=== PATIENT | male | born 1945 | race Caucasian/White ===

== ENCOUNTER 2016-05-01 10:53 | Emergency (ER) | payer MEDICARE, OTHER ==
[2016-05-01] MEDS ORDERED: ALBUTEROL SULFATE/IPRATROPIUM 3 ML NEBU IH ONE ×2 (11:46→12:49)
--- NOTE | 2016-05-01 11:59 | ERNOTE ---
Date of Service: 05/01/16 Time Seen by Provider: 05/01/16 11:40 Stated Complaint: SICK Presenting Symptoms:: cough, runny nose, other - dyspnea Source: patient, RN notes reviewed, past records Exam Limitations: no limitations Immunizations: IMMUNIZATION HX Immunizations Up to Date Yes History of Influenza Vaccine Yes Hx Pneumococcal Vaccination Yes Allergies/Adverse Reactions: Allergies acetaminophen [From Percocet] Adverse Reaction (Verified 05/01/16 11:18) Itching oxycodone HCl [From Percocet] Adverse Reaction (Verified 05/01/16 11:18) Itching Home Medications: HOME MEDICATIONS Ascorbic Acid [Vitamin C] 2,000 mg PO DAILY 03/25/13 [Last Taken 08/20/14] Aspirin 325 mg PO DAILY 03/25/13 [Last Taken 07/22/14] Cyanocobalamin (Vitamin B-12) [Vitamin B-12] 500 mcg PO DAILY 03/25/13 [Last Taken 08/20/14] Garlic 1,000 mg PO DAILY 03/25/13 [Last Taken 08/20/14] Hydrochlorothiazide 12.5 mg PO DAILY 03/25/13 [Last Taken 08/21/14 04:30] Lisinopril [Zestril] 2.5 mg PO DAILY 03/25/13 [Last Taken 08/21/14 04:30] Loratadine [Claritin] 10 mg PO DAILY 03/25/13 [Last Taken 08/21/14 04:30] Metoprolol Tartrate [Lopressor] 50 mg PO BIDWM 03/25/13 [Last Taken 10/02/14] Multivitamins [Multivitamin Marva] 1 cap PO DAILY 03/25/13 [Last Taken 08/20/14 ] Simvastatin 80 mg PO DAILY 03/25/13 [Last Taken 08/20/14] Chromium/Herbal Complex No.238 [Green Tea Caplet] 1 each PO DAILY 07/29/14 [ Last Taken 08/20/14] [place]-3 Fatty Acids/Fish Oil [Fish Oil 1,200 mg Softgel] 1 each PO BID 07/29/14 [Last Taken 08/20/14] Promethazine HCl [Phenergan] 25 mg PO QID PRN #30 tab 08/24/14 [Last Taken Unknown] Sennosides/Docusate Sodium [Senokot-S] 2 tab PO HS #60 tablet 08/24/14 [Last Taken Unknown] Doxazosin Mesylate [Cardura] 1 mg PO HS 09/30/14 [Last Taken Unknown] Gabapentin 300 mg PO TID #90 capsule 10/08/14 [Last Taken Unknown] oxyCODONE HCL/ACETAMINOPHEN [Percocet 5 MG/325 MG] 1 - 2 tab PO Q4H PRN #30 tab 10/08/14 [Last Taken Unknown] Cephalexin Monohydrate [Keflex] 1,000 mg PO BID #40 cap 11/14/14 [Last Taken Unknown] Sulfamethoxazole/Trimethoprim [Bactrim Ds] 1 tab PO BID #20 tablet 03/26/15 [ Last Taken Unknown] Albuterol Sulfate [Proair Hfa] 2 puff IH QID PRN #1 inhaler 05/01/16 [Last Taken Unknown] Azithromycin [Zithromax] 250 mg PO NOW #6 tablet 05/01/16 [Last Taken Unknown] Furosemide [Lasix] 40 mg PO DAILY #7 tablet 05/01/16 [Last Taken Unknown] Potassium Chloride 10 meq PO DAILY #7 tab.er.prt 05/01/16 [Last Taken Unknown] - History of Present Ilness Narrative: 71 year old male who presents to er with c/o uri symptoms, cough and dyspnea. pt's recently ill with influenza. pt states that he feels "out of it". c/ o cp yesterday that is worse with cough but no cp today. history avr. Timing: constant, getting worse Severity: moderate Frequency/Possible Cause: Reports: illness exposure Modifying Factors - Improves: Reports: rest Modifying Factors - Worsens: Reports: activity, coughing Associated Symptoms: Reports: chest pain/soreness, cough, shortness of breath, nasal congestion, nasal drainage, other - body aches. Denies: wheezing, sore throat, fever/chills Review of Systems - Review of Systems Constitutional: Present: weakness, malaise, other - body aches ENT: Present: nose congestion, nasal drainage Respiratory: Present: shortness of breath, cough Cardiology: Present: chest pain. Absent: syncope Gastrointestinal/Abdominal: Present: no symptoms reported Genitourinary: Present: no symptoms reported Musculoskeletal: Present: no symptoms reported Skin: Present: no symptoms reported Neurological: Present: weakness Endocrine: Present: no symptoms reported Hematologic/Lymphatic: Present: no symptoms reported Psych: Present: no symptoms reported All Other Systems: All systems neg except as marked - Patient's Past Medical History Patient History - Medical: Arthritis, Cataracts, Chronic Pain Patient History - Cardiac/Respiratory: Hypertension Patient History - Cancer: Lymphoma Patient History - Surgical Procedures: Coronary Bypass Surgery, Cardiac stent, Other - AVR - Family History Mother Family History - Medical: Father Family History - Medical: Family History - Cardiac/Respiratory: Coronary Heart Disease - Social History Living Situations: home Abuse History: No History of abuse Psych History: No pertinent hx Does anyone smoke in the home?: No Smoking Status: Former smoker Alcohol Use: none Drug Use: none - Immunizations Immunizations Up to Date: Yes Hx Pneumococcal Vaccination: Yes History of Influenza Vaccine: Yes Physical Exam - Physical Exam General Appearance: Present: wd/wn, alert, no apparent distress Eye Exam: Normal inspection: bilateral Ears, Nose, Throat: Present: hearing grossly normal, nasal congestion Neck: Present: normal inspection, supple, full range of motion, lymphadenopathy (R), lymphadenopathy (L) Respiratory: Present: no respiratory distress, no accessory muscle use, chest tenderness, decreased breath sounds Cardiovascular/Chest: Present: regular rate, rhythm, normal peripheral pulses, systolic murmur - 2/4 Gastrointestinal/Abdominal: Present: nontender, nondistended, soft Rectal Exam: Present: deferred Male Genitals Exam: Present: deferred Back Exam: Present: normal inspection, normal range of motion, no CVA tenderness Extremity Exam: Present: normal inspection, non-tender, no edema, normal range of motion Neurological Exam: Present: alert, oriented, normal mood/affect, no motor/ sensory deficits Skin Exam: Present: normal color, warm/dry ED Progress - Date and Time Seen: Date and Time: 05/01/16 13:14 improved after breathing treatment - Results and Orders Results and Orders: Laboratory Tests 05/01/16 11:54 WBC 6.1 RBC 4.17 L Hgb 11.5 L Hct 36.3 L MCV 87.1 MCH 27.6 MCHC 31.7 L RDW 14.7 H Plt Count 119 L MPV 9.4 Immature Gran % (Auto) 0.50 H Immature Gran # (Auto) 0.03 Neutrophils % 81.1 H Lymphocytes % 5.9 L Monocytes % 8.7 Eosinophils % 3.6 H Basophils % 0.2 Nucleated RBC % 0.0 Neutrophils # 5.0 Lymphocytes # 0.4 L Monocytes # 0.5 Eosinophils # 0.2 Absolute Basophils 0.0 Laboratory Tests 05/01/16 11:54 Sodium 140 Plasma Sodium 141 Potassium 3.9 Chloride 104 Carbon Dioxide 31.0 Anion Gap 8.9 BUN 22 Creatinine 1.34 Est GFR (Non-Af Amer) 56 L BUN/Creatinine Ratio 16.4 Random Glucose 157 H Calcium 8.7 Calcium Adj for Albumin 9.0 Total Bilirubin 0.6 AST 26 ALT 28 Alkaline Phosphatase 66 Troponin I Less than 0.017 Total Protein 6.4 Albumin 3.2 L Laboratory Tests 05/01/16 12:26 Influenza Type A Ag Negative Influenza Type B Ag Negative - Vital Signs Vital Signs: Vital Signs 05/01/16 11:16 Temperature 35.6 C L Pulse Rate 70 Respiratory 14 Rate Blood Pressure 125/64 O2 Sat by Pulse 98 Oximetry - EKG EKG: other - AV Paced EKG read: Interp. by me - X-Ray X-Ray #1 X-Ray: chest Interpretation: Reviewed by me - interp by dr cueva. X-ray Comments: chest xray shows trace right pleural effusion. Exam Date: 05/01/2016 12:03 Ordering Physician: Merced Regalado History: Shortness of breath. Cough yesterday. Technique: PA and lateral views of the chest are evaluated without comparison. Findings: Median sternotomy wires and post-CABG changes. Cardiac pacer. Diffuse hyperinflation of the lungs bilaterally with flattening of the hemidiaphragm. Scattered calcified granulomas The lungs are clear bilaterally. Blunting of the right costophrenic angle consistent with a small pleural effusion. No left pleural effusion. There is no focal consolidation or pneumothorax. Cardiac silhouette mildly prominent. The pulmonary vasculature are normal. The osseous structures demonstrate degenerative changes of the spine and shoulders. IMPRESSION: 1. SMALL RIGHT PLEURAL EFFUSION. 2. OTHERWISE NO ACUTE CARDIOPULMONARY ABNORMALITY IDENTIFIED. Electronically signed by Gordon Troy D.O.. - Progress/Reassessment Chief Complaint: Upper Respiratory Symptoms Progress:: Improved Departure - Departure Clinical Impression: Bronchitis, Pleural effusion URI (upper respiratory infection) Qualifiers: URI type: unspecified URI Qualified Code(s): J06.9 - Acute upper respiratory infection, unspecified Disposition: Home self-care Condition: Good Instructions: Pleural Effusion, Acute Bronchitis, [id number] Additional Instructions: call dr mike's office on tuesday for a follow up appointment next week. use inhaler as needed for cough or dyspnea. take lasix in the am as directed. return to er if worse. Referrals: Deangelo Mike MD [Primary Care Provider] - Prescriptions: Albuterol Sulfate [Proair Hfa] 2 puff IH QID PRN #1 inhaler PRN Reason: Shortness Of Breath Azithromycin [Zithromax] 250 mg PO NOW #6 tablet Furosemide [Lasix] 40 mg PO DAILY #7 tablet Potassium Chloride 10 meq PO DAILY #7 tab.er.prt
[2016-05-01 12:05] LABS: Hematocrit 36.3 % (42.0-52.0); Hemoglobin 11.5 gm/dL (13.5-18.0); Mean Cell Volume 87.1 fl (78-100); Mean Corpuscular Hemoglobin 27.6 pg (27-31); Mean Corpuscular Hgb Conc 31.7 g/dl (32-36); Mean Platelet Volume 9.4 fl (6.0-9.5); Neutrophil % 81.1 % (42-75.0); Platelet Count 119 K/mm3 (150-450); Red Blood Count 4.17 M/mm3 (4.7-6.0); Red Cell Distribution Width 14.7 % (11.5-14.0); White Blood Count 6.1 K/mm3 (4.0-10.5)
[2016-05-01 12:24] LABS: ALT 28 U/L (19-67); AST 26 U/L (0-48); Albumin * 3.2 gm/dl (3.4-5.0); Alkaline Phosphatase * 66 U/L (50-170); Anion Gap 8.9 mmol/L (6.8-13.8); BNP * 1481 pg/mL (5-350); BUN/Creatinine Ratio 16.4 (9.0-21.6); Bilirubin, Total 0.6 mg/dL (0.0-1.1); Blood Urea Nitrogen 22 mg/dL (6-23); Calcium * 8.7 mg/dL (7.9-10.9); Chloride 104 mmol/L (97-106); Glucose * 157 mg/dL (70-110); Potassium 3.9 mmol/L (3.4-4.6); Sodium 140 mmol/L (132-142); Total Protein 6.4 gm/dL (6.2-8.2)
[2016-05-01 12:25] LABS: Troponin I Less than 0.017 ng/ml (0.00-0.10)
[2016-05-01 14:08] VITALS: BP 118/70
== END 2016-05-01 13:24 | disposition home or self-care (01) ==
LOC: ER 10:53
DX: J40 Bronchitis, not specified as acute or chronic (principal); J90 Pleural effusion, not elsewhere classified; J06.9 Acute upper respiratory infection, unspecified; Z85.72 Personal history of non-Hodgkin lymphomas; Z87.891 Personal history of nicotine dependence

== ENCOUNTER 2017-05-05 09:47 | Emergency (ER) | payer MEDICARE, OTHER ==
[2017-05-05 10:25] LABS: Urine Bilirubin Negative (NEGATIVE); Urine Blood Negative /ul (NEGATIVE); Urine Ketone Negative (NEGATIVE); Urine Nitrite Negative (NEGATIVE); Urine Protein Negative (NEGATIVE); Urine Urobilinogen Normal (NORMAL); Urine pH 7.5 pH (5.0-7.0)
[2017-05-05 10:41] LABS: Urine Appearance Clear; Urine Bacteria None Seen; Urine Color Yellow; Urine RBC None Seen /hpf (0-5); Urine WBC None Seen /hpf (0-5)
[2017-05-05 10:52] LABS: Hematocrit 32.4 % (42.0-52.0); Hemoglobin 11.1 gm/dL (13.5-18.0); Mean Cell Volume 84.8 fl (78-100); Mean Corpuscular Hemoglobin 29.1 pg (27-31); Mean Corpuscular Hgb Conc 34.3 g/dl (32-36); Mean Platelet Volume 10.2 fl (6.0-9.5); Neutrophil # 2.2 K/mm3 (1.3-6.0); Neutrophil % 65.3 % (42-75.0); Platelet Count 116 K/mm3 (150-450); Red Blood Count 3.82 M/mm3 (4.7-6.0); Red Cell Distribution Width 14.7 % (11.5-14.0); White Blood Count 3.4 K/mm3 (4.0-10.5)
--- NOTE | 2017-05-05 11:09 | ERNOTE ---
Syncope ER HPI Date of Service: 05/05/17 Stated Complaint: SYNCOPAL EPISODE Time Seen by Provider: 05/05/17 10:45 Source: patient, family, RN notes reviewed, past records Exam Limitations: no limitations Immunizations: IMMUNIZATION HX Immunizations Up to Date Yes History of Influenza Vaccine Yes Hx Pneumococcal Vaccination Yes Allergies/Adverse Reactions: Allergies oxycodone HCl [From Percocet] Adverse Reaction (Verified 05/05/17 10:00) Itching Home Medications: HOME MEDICATIONS Ascorbic Acid [Vitamin C] 2,000 mg PO DAILY 03/25/13 [Last Taken 08/20/14] Aspirin 81 mg PO DAILY 03/25/13 [Last Taken 07/22/14] Cyanocobalamin (Vitamin B-12) [Vitamin B-12] 500 mcg PO DAILY 03/25/13 [Last Taken 08/20/14] Hydrochlorothiazide 12.5 mg PO DAILY 03/25/13 [Last Taken 08/21/14 04:30] Lisinopril [Zestril] 2.5 mg PO DAILY 03/25/13 [Last Taken 08/21/14 04:30] Loratadine [Claritin] 10 mg PO DAILY 03/25/13 [Last Taken 08/21/14 04:30] Metoprolol Tartrate [Lopressor] 50 mg PO BIDWM 03/25/13 [Last Taken 10/02/14] Multivitamins [Multivitamin Marva] 1 cap PO DAILY 03/25/13 [Last Taken 08/20/14 ] Simvastatin 80 mg PO DAILY 03/25/13 [Last Taken 08/20/14] Chromium/Herbal Complex No.238 [Green Tea Caplet] 1 each PO DAILY 07/29/14 [ Last Taken 08/20/14] [place]-3 Fatty Acids/Fish Oil [Fish Oil 1,200 mg Softgel] 1 each PO BID 07/29/14 [Last Taken 08/20/14] Gabapentin 300 mg PO TID #90 capsule 10/08/14 [Last Taken Unknown] Amitriptyline HCl [Elavil] 50 mg PO DAILY 05/05/17 [Last Taken Unknown] Terazosin HCl [Hytrin] 5 mg PO HS 05/05/17 [Last Taken Unknown] - History of Present Illness Narrative: Robin is a 72 year old male brought to the ED by ambulance for a syncopal episode. This occurred just [employer] while he was walking across the room at home. His reports lowering him to the ground so he did not hit his head. He states he was a little lightheaded and then his vision went black. He also had a syncopal episode yesterday evening after "doing my exercises." He refused to come in for evaluation at that time. His reports that each episode lasted about 5 minutes. He continues to feel somewhat lightheaded and has a mild headache. Prior Episodes: Present: single episode today, other - single episode last night Symptoms prior to episode: Present: vision changes, light headedness Activity at time of episode: Present: standing Character of event: Present: prolonged (minutes), became unresponsive. Absent: seizure activity observed, incontinent, confused after event Location of Injury: Present: none Current Symptoms: Present: light headedness, headache Prior Treament: Denies: recently seen, similar symptoms before Review of Systems - Review of Systems Constitutional: Absent: recent illness, fever, malaise EYE: Absent: eye pain, blurred vision ENT: Absent: ear pain, nose congestion, sore throat Respiratory: Absent: shortness of breath, cough Cardiology: Absent: chest pain, palpitations, edema Gastrointestinal/Abdominal: Absent: nausea, vomiting, diarrhea, abdominal pain Genitourinary: Absent: dysuria, decreased urinary output Musculoskeletal: Absent: neck pain, joint pain Skin: Absent: rash, lesions, lumps Neurological: Present: headache, dizziness/light-headedness Endocrine: Present: no symptoms reported Hematologic/Lymphatic: Absent: easy bruising, easy bleeding Psych: Absent: emotional problems - Patient's Past Medical History Patient History - Medical: Arthritis, Cataracts, Chronic Pain, Other - BPH Patient History - Cardiac/Respiratory: Hypertension, Valvular Heart Disease, Sleep Apnea Patient History - Cancer: Lymphoma Patient History - Surgical Procedures: Back Surgery, Cardiac stent, Pacemaker, Other - Aortic valve replacement, Hernia Repair Patient History - Other: None - Family History Mother Family History - Medical: Father Family History - Medical: Family History - Cardiac/Respiratory: Coronary Heart Disease - Social History Living Situations: spouse Abuse History: No History of abuse Psych History: No pertinent hx Smoking Status: Former smoker Alcohol Use: none Drug Use: none - Immunizations Immunizations Up to Date: Yes Hx Pneumococcal Vaccination: Yes History of Influenza Vaccine: Yes Physical Exam - Physical Exam General Appearance: Present: wd/wn, alert, no apparent distress Head Exam: Present: normal inspection, no evidence of injury Eye Exam: Normal inspection: bilateral, PERRL: bilateral, EOMI: bilateral Ears, Nose, Throat: Present: normal ENT inspection, normal pharynx Neck: Present: normal inspection, nontender, supple, full range of motion Respiratory: Present: no respiratory distress, normal breath sounds, no accessory muscle use, lungs clear Cardiovascular/Chest: Present: regular rate, rhythm, normal peripheral pulses, systolic murmur Gastrointestinal/Abdominal: Present: normal bowel sounds, nontender, nondistended, soft Extremity Exam: Present: normal inspection, normal range of motion, no edema Neurological Exam: Present: alert, oriented, normal mood/affect, no motor/ sensory deficits Skin Exam: Present: warm/dry, pallor ED Progress - Results and Orders Patient's Lab Results:: I have reviewed the patient's lab results. - Vital Signs Patient's Vital Signs:: I have reviewed the patient's vital signs. Vital Signs: Vital Signs 05/05/17 05/05/17 05/05/17 09:50 09:57 10:04 Temperature 36.5 C Pulse Rate 70 71 71 Respiratory 19 10 L Rate Blood Pressure 97/43 95/43 O2 Sat by Pulse 98 97 Oximetry 05/05/17 10:32 Temperature Pulse Rate 70 Respiratory 12 Rate Blood Pressure 102/46 O2 Sat by Pulse 98 Oximetry - EKG EKG: other - Paced rhythm EKG read: Reviewed by me - X-Ray X-Ray #1 X-Ray: chest Interpretation: Reviewed by me X-ray Comments: No acute cardiopulmonary findings - CT/Ultrasound CT/Ultrasound Narrative: Non-contrast head CT shows no acute intracranial findings - Progress/Reassessment Chief Complaint: Syncopal Episode Progress:: Improved Progress Note-Subjective: 05/05/17 13:22 Patient verbalizes feeling better after a liter of IV NS and several glasses of water. Agrees to f/u with his PCP on an as needed basis or return if syncope occurs again. Departure Clinical Impression: Syncope due to orthostatic hypotension - Departure Disposition: Home Follow Up Needed Condition: Stable Instructions: Syncope, [id number] Additional Instructions: Increase fluid intake - at least 8 glasses of water per day continue your current medications Follow up with your doctor as needed Referrals: Deangelo Mike MD [Staff Physician] -
[2017-05-05 11:15] LABS: Albumin * 3.5 gm/dl (3.4-5.0); Anion Gap 5.4 mmol/L (6.8-13.8); BUN/Creatinine Ratio 12.1 (9.0-21.6); Bilirubin, Total 0.6 mg/dL (0.0-1.1); Ca. Corrected For Albumin 9.4 mg/dL (8.4-10.2); Calcium * 9.3 mg/dL (7.9-10.9); Carbon Dioxide 35.9 mmol/L (24-32.6); Potassium 4.3 mmol/L (3.4-4.6); Total Protein 6.1 gm/dL (6.2-8.2)
[2017-05-05] MEDS ORDERED: NORMAL SALINE 1,000 ML IV ONE (11:59)
[2017-05-05 13:33] VITALS: BP 138/67
== END 2017-05-05 13:20 | disposition home or self-care (01) ==
LOC: ER 09:47
DX: I95.1 Orthostatic hypotension (principal); I10 Essential (primary) hypertension; Z95.0 Presence of cardiac pacemaker; Z95.5 Presence of coronary angioplasty implant and graft; N40.0 Benign prostatic hyperplasia without lower urinary tract symptoms; Z85.72 Personal history of non-Hodgkin lymphomas; Z87.891 Personal history of nicotine dependence